=== PATIENT | female | born 2000 | race African-American/Black ===

== ENCOUNTER 2022-09-16 09:58 | Emergency (ER) | payer BC, SELFPAY ==
--- NOTE | ~2022-09-16 | XR_ITS ---
EXAMINATION: SACRUM/COCCYX DATE: 09/16/2022 11:53 INDICATION: Status post recent fall. Low back pain. TECHNIQUE: Three views sacrum/coccyx FINDINGS: No prior studies for comparison. There is no displaced fracture of the sacrum. The coccyx demonstrates overall normal morphology with out acute angulation. IMPRESSION: 1. No acute displaced osseous abnormality of the sacrum. Suspicion for occult or nondisplaced sacral fracture can either be evaluated with CT or MRI. 2. Grossly normal morphology to the coccyx without acute angulation. However, due to the wide range of normal variation of the coccyx, acute injury would be best evaluated by clinical examination and patient's symptoms. Reviewed, dictated and finalized at location A. 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
--- NOTE | ~2022-09-16 | CT_ITS ---
EXAMINATION: CT cervical spine wo con DATE: 09/16/2022 11:47 INDICATION: Neck pain after fall TECHNIQUE: Computed tomography (CT) of the cervical spine was performed without intravenous contrast. The dose-length product was 339 mGy-cm. Automated exposure control and iterative reconstruction tech nique were employed. COMPARISON: None FINDINGS: Straightening of cervical lordosis. Craniovertebral junction is normal. Odontoid process is normal. No evidence for perched facet. Vertebral body heights are maintained. No significant disc na rrowing. No evidence for perched facet. Spinous processes are normal. No significant paraspinal soft tissue abnormality. IMPRESSION: 1. No acute abnormality of the cervical spine. Reviewed, dictated and finalized at location A. 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
--- NOTE | ~2022-09-16 | XR_ITS ---
XR shoulder RT min 2V 09/16/2022 11:54 INDICATION: Right shoulder pain after recent fall PROCEDURE: 4 views right shoulder COMPARISON: No prior studies for comparison. FINDINGS: Fracture, dislocation or subluxation is not identified. The soft tissues appear within norm al limits. No foreign bodies are identified. IMPRESSION: 1: NO ACUTE BONE OR JOINT ABNORMALITY IDENTIFIED. Reviewed, dictated and finalized at location A. 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
--- NOTE | ~2022-09-16 | XR_ITS ---
LUMBAR SPINE INDICATION: Low back pain after fall TECHNIQUE: 5 views lumbar spine COMPARISON: None FINDINGS: No fracture, subluxation or dislocation. No evidence for spondylolysis or spondylolisthesi s. Vertebral bodies and disk spaces are preserved. IMPRESSION: 1: No acute abnormality of the lumbar spine identified. Reviewed, dictated and finalized at location A. 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
--- NOTE | ~2022-09-16 | CT_ITS ---
EXAMINATION: CT BRAIN W/O DATE: 09/16/2022 11:47 INDICATION: Status post fall. Vision changes. Headache. TECHNIQUE: Computed tomography (CT) of the head was performed without intravenous contrast. The dose- length product was 529.67 mGy-cm. Automated exposure control and iterative reconstruction technique w ere employed. COMPARISON: No prior studies for comparison. FINDINGS: Normal brain parenchymal volume for age. Normal franco-white differentiation. No acute intrac ranial hemorrhage, infarction, mass or mass effect. No ventriculomegaly or midline shift. Midline sagittal images demonstrate a normal corpus callosum, c raniovertebral junction and sella turcica. Basilar cisterns are patent. Paranasal sinuses and mastoids are pneumatized. No depressed skull fractures. IMPRESSION: 1. No acute intracranial abnormality. Reviewed, dictated and finalized at location A. 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
[2022-09-16 10:01] VITALS: BP 115/69; PULSE 66; RESP 16; TEMP 36.2; O2SAT 100
--- NOTE | 2022-09-16 10:58 | ED.FALL ---
HPI - Fall General Chief Complaint: Fall Stated Complaint: Fall 2D ago, head, neck,back pain Time Seen by Provider: 09/16/22 10:37 History of Present Illness HPI Narrative: 22-year-old female reports to the ED for headache, vision changes, neck pain, sacral pain x2 days. Patient reports she fell 2 days ago after slipping on a wet floor and falling backwards, hitting her head. Denies loss of consciousness, confusion, or amnesia. States since the fall, she has had persistent pain in the back of her head, neck, right shoulder, and tailbone. She also reports intermittent vision changes, stating her vision is blurry. Reports intermittent nausea. Denies focal weakness, numbness, shortness of breath, chest pain, urinary complaints or bowel changes. States she has not taking any [id number] medications at home for her pain. Related Data Allergies Allergy/AdvReac Type Severity Reaction Status Date / Time No Known Allergies Allergy Verified 09/16/22 10:59 Review of Systems Review of Systems: CONSTITUTIONAL: Denies fever, chills, or sweats. EYES: Reports blurry vision ENT: Denies rhinorrhea, congestion, sore throat, or otalgia. CARDIOVASCULAR: Denies chest pain, palpitations, or edema. RESPIRATORY: Denies cough or dyspnea. GASTROINTESTINAL: Denies abdominal pain, vomiting, or diarrhea. Reports nausea GENITOURINARY: Denies dysuria or hematuria. MUSCULOSKELETAL: See HPI NEUROLOGIC: See HPI Exam Narrative: GENERAL: Well-appearing, well-nourished, and in no acute distress. HEAD: TTP to posterior aspect of head. No ecchymosis, bleeding, lacerations, abrasions, crepitus. EYES: PERRL and EOMI. ENT: Nares clear, no rhinorrhea or epistaxis. Mucous membranes moist. Oropharynx without tonsillar hypertrophy exudate or other lesions. NECK: TTP to cervical spine, paraspinal muscles, extending into the right shoulder overlying the trapezius. No step-offs appreciated. CHEST: Clear to auscultation. No respiratory distress. No wheezes rales or rhonchi HEART: Regular rate and rhythm. No murmur heard. Normal peripheral pulses. EXTREMITIES: Diffuse tenderness with palpation over the right shoulder, no crepitus. Full range of motion of right shoulder. Right radial pulse 3+. No ecchymosis or edema appreciated. SKIN: Warm, dry, no rash. NEURO: No focal deficits. Alert and oriented x3. Peripheral strength 5 out of 5. DP and radial pulses 3+. Cranial nerves II through XII intact. Sensation intact throughout. PSYCH: Normal mood and affect. Course Course Emergency Course: 1220: Spoke with patient about the results of her imaging. Discussed there was no evidence of fractures, bleeds. Discussed the plan with the patient which includes sending her home with naproxen and Flexeril, and to return if she develops worsening or persistent headache, worsening or persistent vision changes, weakness, numbness, confusion, vomiting, etc. Patient agrees and voices understanding. Vital Signs Vital signs: Vital Signs Temperature 97.1 F L 09/16/22 10:01 Pulse Rate 66 09/16/22 10:01 Respiratory Rate 16 09/16/22 10:01 Blood Pressure 115/69 09/16/22 10:01 Pulse Oximetry 100 09/16/22 10:01 Oxygen Delivery Room Air 09/16/22 10:01 Temperature 97.1 F L 09/16/22 10:01 Pulse Rate 63 09/16/22 11:01 Respiratory Rate 18 09/16/22 11:01 Blood Pressure 120/61 09/16/22 11:01 Pulse Oximetry 100 09/16/22 11:01 Oxygen Delivery Room Air 09/16/22 10:01 MDM - Fall MDM Narrative Medical decision making narrative: 22-year-old female with no PMH reports for headache, vision changes, neck pain, right shoulder pain, low back pain for 2 days since she fell on a wet floor, landed on her back and hit her head. A&O x3 . No focal neurological deficits on exam. CT noncontrast brain and c-spine negative for fractures or bleeds. All x-rays obtained are negative. Discussed findings with patient. Patient in stable condition and to be discharged marcie
[2022-09-16 11:01] VITALS: BP 120/61; PULSE 63; RESP 18; O2SAT 100
[2022-09-16] MEDS: KETOROLAC (*BKC) 60 MG/2 ML VIAL IM (12:38)
[2022-09-16 13:05] VITALS: BP 107/64; PULSE 60; RESP 18; O2SAT 98
== END 2022-09-16 13:05 | disposition home or self-care (01) ==
PROVIDERS: Emergency Provider Physician Assistant; PCP Pediatrics
DX: G44.319 Acute post-traumatic headache, not intractable (principal); S13.9XXA Sprain of joints and ligaments of unspecified parts of neck, initial encounter; S39.92XA Unspecified injury of lower back, initial encounter; W01.0XXA Fall on same level from slipping, tripping and stumbling without subsequent striking against object, initial encounter
CPT/HCPCS: 70450; 72110; 72125; 72220; 73030; 81025; 96372; 99284; J1885